=== PATIENT | male | born 1980 | race Two or more races ===

== ENCOUNTER 2020-12-07 05:37 | Emergency (ER) | payer MEDICAID ==
[~2020-12-07] VITALS: Ht 172.7 cm; Wt 70.8 kg
[2020-12-07 08:20] VITALS: BP 126/81
[2020-12-07 09:17] LABS: Basophils # (auto) 0.2 10 ^3/uL (0-0.2); Basophils % (auto) 2.1 % (0.0-2.0); Eosinophils # (auto) 0 10 ^3/uL (0-0.8); Hematocrit 39.9 % (41.0-53.0); Hemoglobin 13.4 g/dL (13.5-17.5); Lymphocytes # (auto) 0.9 10 ^3/uL (0.4-5.4); Mean Corpuscular Hemoglobin 31.5 pg (28.0-32.0); Mean Corpuscular Hgb Conc. 33.6 g/dL (32.0-36.0); Mean Corpuscular Volume 93.8 fL (80.0-100.0); Monocytes # (auto) 0.7 10 ^3/uL (0-1.3); Monocytes % (auto) 7.8 % (0.0-12.0); Neutrophils # (auto) 7.3 10 ^3/uL (1.6-8.6); Neutrophils % (auto) 80.1 % (37.0-80.0); Red Blood Cells 4.25 10^6/uL (4.5-5.90); Red Cell Distribution Width 14.2 % (11.8-14.3); White Blood Cell 9.1 10^3/uL (4.4-10.8)
[2020-12-07 09:23] LABS: Albumin 3.9 g/dL (3.4-5.0); Calcium 8.4 mg/dL (8.5-10.1); Potassium 3.6 mmol/L (3.5-5.1)
[2020-12-07 09:25] LABS: BUN/Creatinine Ratio 8.9
[2020-12-07 09:28] LABS: Bilirubin, Total 0.2 mg/dL (0.2-1.0); Total Protein 7.6 g/dL (6.4-8.2)
== END 2020-12-07 08:54 | disposition left against medical advice (07) ==
LOC: ER 05:37 → EDBD 05:37 → ER 08:54
DX: R06.02 Shortness of breath (principal); F41.9 Anxiety disorder, unspecified; F12.10 Cannabis abuse, uncomplicated; Z59.0 Homelessness
CPT/HCPCS: 36415; 80053; 85025; 93005

== ENCOUNTER 2020-12-07 11:12 | Emergency (ER) | payer MEDICAID ==
[~2020-12-07] VITALS: Ht 172.7 cm; Wt 70.8 kg
[2020-12-07 11:18] VITALS: BP 155/99
[2020-12-07] MEDS ORDERED: SODIUM CHLORIDE 0.9% 1,000 ML IV ONE (12:30)
== END 2020-12-07 13:26 | disposition left against medical advice (07) ==
LOC: ER 11:12
DX: F10.180 Alcohol abuse with alcohol-induced anxiety disorder (principal); F12.10 Cannabis abuse, uncomplicated; Z59.0 Homelessness; Y90.8 Blood alcohol level of 240 mg/100 ml or more

== ENCOUNTER 2020-12-15 04:51 | Emergency (ER) | payer MEDICAID ==
[~2020-12-15] VITALS: Ht 177.8 cm; Wt 77.1 kg
[2020-12-15 05:07] VITALS: BP 138/98
== END 2020-12-15 06:17 | disposition left against medical advice (07) ==
LOC: ER 04:51 → EDBD 04:51 → ER 06:17
DX: R05 Cough (principal); R06.00 Dyspnea, unspecified; F12.10 Cannabis abuse, uncomplicated; Z59.0 Homelessness; Z20.822 Contact with and (suspected) exposure to COVID-19
CPT/HCPCS: 36415; 71045; 87426; 93005

== ENCOUNTER 2020-12-26 22:16 | Emergency (ER) | payer MEDICAID ==
[~2020-12-26] VITALS: Ht 172.7 cm; Wt 70.3 kg
[2020-12-26] MEDS ORDERED: LORazepam 2MG/ML-1ML VIAL ONE ×2 (22:21→22:47)
[2020-12-26] MEDS ORDERED: LORazepam 2MG/ML-1ML VIAL IV ONE ×2 (22:30→22:45)
[2020-12-26] MEDS ORDERED: diphenhdrAMINE HCL 50 MG/1 ML VL IV ONE (22:30)
[2020-12-26] MEDS ORDERED: SODIUM CHLORIDE 0.9% 1,000 ML IV ONE ×2 (22:30)
[2020-12-27 00:29] LABS: Basophils # (auto) 0.1 10 ^3/uL (0-0.2); Basophils % (auto) 0.7 % (0.0-2.0); Eosinophils # (auto) 0 10 ^3/uL (0-0.8); Hematocrit 39.3 % (41.0-53.0); Hemoglobin 13.1 g/dL (13.5-17.5); Lymphocytes # (auto) 0.6 10 ^3/uL (0.4-5.4); Lymphocytes % (auto) 7.6 % (10.0-50.0); Mean Corpuscular Hemoglobin 31.2 pg (28.0-32.0); Mean Corpuscular Hgb Conc. 33.4 g/dL (32.0-36.0); Mean Corpuscular Volume 93.4 fL (80.0-100.0); Monocytes # (auto) 0.6 10 ^3/uL (0-1.3); Monocytes % (auto) 7.2 % (0.0-12.0); Neutrophils # (auto) 6.6 10 ^3/uL (1.6-8.6); Neutrophils % (auto) 84.5 % (37.0-80.0); Nucleated Red Blood Cells % 0.1 %; Platelet Count (auto) 295 10^3/uL (140-450); Red Blood Cells 4.21 10^6/uL (4.5-5.90); Red Cell Distribution Width 14.3 % (11.8-14.3); White Blood Cell 7.8 10^3/uL (4.4-10.8)
[2020-12-27 00:46] LABS: INR 1.01 (0.9-1.15); Partial Thromboplastin Time 22.8 sec (23.0-31.2)
[2020-12-27 01:37] VITALS: BP 126/75
[2020-12-27 01:54] LABS: Albumin 3.8 g/dL (3.4-5.0); Anion Gap 10 (5-15); Blood Alcohol < 3.0 mg/dL (0-5); Blood Urea Nitrogen 9 mg/dL (7-18); Calcium 8.1 mg/dL (8.5-10.1); Carbon Dioxide 22 mmol/L (21-32); Chloride 113 mmol/L (98-107); Glucose 98 mg/dL (74-106); Magnesium 2.2 mg/dL (1.6-2.6); Potassium 3.7 mmol/L (3.5-5.1); Sodium 145 mmol/L (136-145)
[2020-12-27 01:55] LABS: Salicylate < 1.7 mg/dL (2.8-20.0)
[2020-12-27 01:56] LABS: Alanine Aminotransferase 21 U/L (16-61); Aspartate Aminotransferase 17 U/L (15-37); BUN/Creatinine Ratio 9.4; GFR African American 112 mL/min; GFR Non-African American 92 mL/min
[2020-12-27 02:01] LABS: Alkaline Phosphatase 84 U/L (45-117); Bilirubin, Total 0.3 mg/dL (0.2-1.0); Total Protein 7.3 g/dL (6.4-8.2)
[2020-12-27 02:05] LABS: Acetaminophen < 2.0 ug/mL (10-30)
== END 2020-12-27 02:12 | disposition home or self-care (01) ==
LOC: ER 22:16 → EDBD 22:16 → ER 12-27 02:10
DX: F41.1 Generalized anxiety disorder (principal); R07.9 Chest pain, unspecified; F15.10 Other stimulant abuse, uncomplicated; R41.82 Altered mental status, unspecified; F12.10 Cannabis abuse, uncomplicated; Z59.0 Homelessness
CPT/HCPCS: 36415; 71045; 80053; 80320; 80329; 83735; 83880; 84443; 84484; 85025; 85379; 85610; 85730; 93005; 96361; 96374; 96375; 99285; J1200; J2060; J7030

== ENCOUNTER 2021-01-01 14:34 | Emergency (ER) | payer MEDICAID ==
[~2021-01-01] VITALS: Ht 172.7 cm; Wt 72.6 kg
[2021-01-01 14:43] VITALS: BP 124/88
[2021-01-01] MEDS ORDERED: KETOROLAC TROMETH 30 MG/ML 1ML VIAL IV ONE (15:00)
[2021-01-01] MEDS ORDERED: SODIUM CHLORIDE 0.9% 1,000 ML IVB ONE (15:00)
[2021-01-01 15:28] LABS: Basophils # (auto) 0 10 ^3/uL (0-0.2); Basophils % (auto) 0.8 % (0.0-2.0); Eosinophils # (auto) 0 10 ^3/uL (0-0.8); Eosinophils % (auto) 0.1 % (0.0-7.0); Hematocrit 41.4 % (41.0-53.0); Hemoglobin 14.2 g/dL (13.5-17.5); Lymphocytes # (auto) 1.1 10 ^3/uL (0.4-5.4); Lymphocytes % (auto) 22.6 % (10.0-50.0); Mean Corpuscular Hemoglobin 31.6 pg (28.0-32.0); Mean Corpuscular Hgb Conc. 34.2 g/dL (32.0-36.0); Mean Corpuscular Volume 92.4 fL (80.0-100.0); Monocytes # (auto) 0.5 10 ^3/uL (0-1.3); Monocytes % (auto) 9.6 % (0.0-12.0); Neutrophils # (auto) 3.3 10 ^3/uL (1.6-8.6); Neutrophils % (auto) 66.9 % (37.0-80.0); Nucleated Red Blood Cells % 0.1 %; Red Blood Cells 4.48 10^6/uL (4.5-5.90); Red Cell Distribution Width 14.1 % (11.8-14.3); White Blood Cell 4.9 10^3/uL (4.4-10.8)
[2021-01-01 18:16] LABS: Albumin 4.3 g/dL (3.4-5.0); BUN/Creatinine Ratio 5.1; Calcium 8.6 mg/dL (8.5-10.1); Potassium 3.2 mmol/L (3.5-5.1)
[2021-01-01 18:18] LABS: Bilirubin, Total 0.3 mg/dL (0.2-1.0); Total Protein 8.2 g/dL (6.4-8.2)
== END 2021-01-01 15:45 | disposition left against medical advice (07) ==
LOC: EDBD 14:34 → ER 14:34 → EDUNIT# 14:34 → ER 15:45
DX: R07.89 Other chest pain (principal); F15.10 Other stimulant abuse, uncomplicated; F10.10 Alcohol abuse, uncomplicated; F41.9 Anxiety disorder, unspecified; Z59.0 Homelessness
CPT/HCPCS: 36415; 74176; 80053; 80320; 83690; 85025

== ENCOUNTER 2021-01-03 10:44 | Emergency (ER) | payer MEDICAID ==
[~2021-01-03] VITALS: Ht 167.6 cm; Wt 77.1 kg
[2021-01-03] MEDS ORDERED: SODIUM CHLORIDE 0.9% 1,000 ML IV ONE (11:10)
[2021-01-03 11:40] LABS: Basophils # (auto) 0 10 ^3/uL (0-0.2); Basophils % (auto) 0.4 % (0.0-2.0); Eosinophils # (auto) 0.1 10 ^3/uL (0-0.8); Eosinophils % (auto) 1.7 % (0.0-7.0); Hematocrit 40.8 % (41.0-53.0); Hemoglobin 13.6 g/dL (13.5-17.5); Lymphocytes # (auto) 0.9 10 ^3/uL (0.4-5.4); Lymphocytes % (auto) 18.1 % (10.0-50.0); Mean Corpuscular Hemoglobin 30.8 pg (28.0-32.0); Mean Corpuscular Hgb Conc. 33.2 g/dL (32.0-36.0); Mean Corpuscular Volume 92.5 fL (80.0-100.0); Monocytes # (auto) 0.7 10 ^3/uL (0-1.3); Monocytes % (auto) 13.1 % (0.0-12.0); Neutrophils # (auto) 3.4 10 ^3/uL (1.6-8.6); Neutrophils % (auto) 66.7 % (37.0-80.0); Platelet Count (auto) 339 10^3/uL (140-450); Red Blood Cells 4.41 10^6/uL (4.5-5.90); Red Cell Distribution Width 14.1 % (11.8-14.3); White Blood Cell 5.1 10^3/uL (4.4-10.8)
[2021-01-03 12:12] LABS: Albumin 3.8 g/dL (3.4-5.0); Anion Gap 8 (5-15); Blood Urea Nitrogen 9 mg/dL (7-18); Calcium 8.7 mg/dL (8.5-10.1); Carbon Dioxide 26 mmol/L (21-32); Chloride 104 mmol/L (98-107); Glucose 109 mg/dL (74-106); Potassium 3.3 mmol/L (3.5-5.1); Sodium 138 mmol/L (136-145)
[2021-01-03 12:18] LABS: Alanine Aminotransferase 21 U/L (16-61); Alkaline Phosphatase 83 U/L (45-117); Aspartate Aminotransferase 20 U/L (15-37); Bilirubin, Total 0.7 mg/dL (0.2-1.0); GFR African American 134 mL/min; GFR Non-African American 111 mL/min; Total Protein 7.3 g/dL (6.4-8.2)
[2021-01-03 13:36] VITALS: BP 128/80
== END 2021-01-03 14:25 | disposition home or self-care (01) ==
LOC: EDBD 10:44 → EDUNIT# 10:44 → ER 10:44
DX: F41.1 Generalized anxiety disorder (principal); R07.9 Chest pain, unspecified; F12.10 Cannabis abuse, uncomplicated; Z59.0 Homelessness
CPT/HCPCS: 36415; 71045; 80053; 82962; 84484; 85025; 93005; 99285; J7030

== ENCOUNTER 2021-01-04 21:55 | Emergency (ER) | payer MEDICAID ==
[~2021-01-04] VITALS: Ht 172.7 cm; Wt 68.0 kg
[2021-01-05 00:40] VITALS: BP 147/105
== END 2021-01-05 03:34 | disposition left against medical advice (07) ==
LOC: ER 21:56
DX: R05 Cough (principal); Z53.21 Procedure and treatment not carried out due to patient leaving prior to being seen by health care provider
CPT/HCPCS: 71046

== ENCOUNTER 2021-01-07 02:22 | Emergency (ER) | payer MEDICAID ==
[~2021-01-07] VITALS: Ht 172.7 cm; Wt 70.8 kg
[2021-01-07] MEDS ORDERED: ALPRAZolam 0.5 MG TAB ONE (02:41)
[2021-01-07] MEDS ORDERED: ALPRAZolam 0.5 MG TAB PO ONE (02:45)
[2021-01-07 06:48] VITALS: BP 146/99
== END 2021-01-07 06:57 | disposition home or self-care (01) ==
LOC: ER 02:25
DX: F41.9 Anxiety disorder, unspecified (principal); F19.10 Other psychoactive substance abuse, uncomplicated

== ENCOUNTER 2021-01-11 03:55 | Emergency (ER) | payer MEDICAID ==
[~2021-01-11] VITALS: Ht 172.7 cm; Wt 70.8 kg
[2021-01-11 08:20] VITALS: BP 139/99
== END 2021-01-11 08:44 | disposition home or self-care (01) ==
LOC: ER 03:55
DX: R05 Cough (principal); R07.9 Chest pain, unspecified; F12.10 Cannabis abuse, uncomplicated; F15.10 Other stimulant abuse, uncomplicated; Z59.0 Homelessness; Z20.822 Contact with and (suspected) exposure to COVID-19
CPT/HCPCS: 36415; 71046; 87426

== ENCOUNTER 2021-01-26 23:52 | Emergency (ER) | payer MEDICAID ==
[~2021-01-26] VITALS: Ht 172.7 cm; Wt 70.8 kg
[2021-01-27] MEDS ORDERED: SODIUM CHLORIDE 0.9% 1,000 ML IV ONE (00:15)
[2021-01-27 01:07] LABS: Partial Thromboplastin Time 23.8 sec (23.0-31.2)
[2021-01-27 01:13] LABS: Basophils # (auto) 0 10 ^3/uL (0-0.2); Basophils % (auto) 0.6 % (0.0-2.0); Eosinophils # (auto) 0 10 ^3/uL (0-0.8); Hematocrit 41.8 % (41.0-53.0); Hemoglobin 14.1 g/dL (13.5-17.5); Lymphocytes # (auto) 1.2 10 ^3/uL (0.4-5.4); Lymphocytes % (auto) 17.1 % (10.0-50.0); Mean Corpuscular Hemoglobin 31.1 pg (28.0-32.0); Mean Corpuscular Hgb Conc. 33.8 g/dL (32.0-36.0); Monocytes # (auto) 0.5 10 ^3/uL (0-1.3); Monocytes % (auto) 7.1 % (0.0-12.0); Neutrophils # (auto) 5.1 10 ^3/uL (1.6-8.6); Neutrophils % (auto) 75.2 % (37.0-80.0); Platelet Count (auto) 364 10^3/uL (140-450); Red Blood Cells 4.54 10^6/uL (4.5-5.90); Red Cell Distribution Width 14.3 % (11.8-14.3); White Blood Cell 6.8 10^3/uL (4.4-10.8)
[2021-01-27 01:14] LABS: Alanine Aminotransferase 25 U/L (16-61); Anion Gap 10 (5-15); Aspartate Aminotransferase 17 U/L (15-37); BUN/Creatinine Ratio 8.8; Blood Urea Nitrogen 9 mg/dL (7-18); Calcium 8.3 mg/dL (8.5-10.1); Carbon Dioxide 23 mmol/L (21-32); Chloride 107 mmol/L (98-107); GFR African American 104 mL/min; GFR Non-African American 86 mL/min; Glucose 117 mg/dL (74-106); Magnesium 1.8 mg/dL (1.6-2.6); Potassium 3.4 mmol/L (3.5-5.1); Sodium 140 mmol/L (136-145)
[2021-01-27 01:18] LABS: Alkaline Phosphatase 91 U/L (45-117); Bilirubin, Total 0.3 mg/dL (0.2-1.0); Total Protein 7.7 g/dL (6.4-8.2)
[2021-01-27] MEDS ORDERED: DONNATAL 5ml ORAL Elix (BELLADONNA ALK-PHENOBARB) PO ONE (01:45)
[2021-01-27] MEDS ORDERED: ALUM & MAG HYDROX-SIMETH LIQ(MAALOX) 30 ML PO ONE (01:45)
[2021-01-27] MEDS ORDERED: LIDOCAINE VISCOUS 2% 15ML UD PO ONE (01:45)
[2021-01-27 02:00] VITALS: BP 157/97
[2021-01-27 04:45] LABS: Urine Bacteria NONE SEEN /hpf (None Seen); Urine Blood Negative /uL (Negative); Urine Specific Gravity 1.012 (1.001-1.035); Urine WBC <1 /hpf (0 - 3)
[2021-01-27 05:13] LABS: Amphetamine Screen, Urine POSITIVE (NEGATIVE); Barbiturate Scree,Urine NEGATIVE (NEGATIVE); Benzodiazephine Screen, Urine NEGATIVE (NEGATIVE); Cannabinoid Screen, Urine NEGATIVE (NEGATIVE); Cocaine Screen, Urine NEGATIVE (NEGATIVE); Opiate Scree,Urine NEGATIVE (NEGATIVE); Phencyclidine Screen, Urine NEGATIVE (NEGATIVE)
== END 2021-01-27 03:31 | disposition home or self-care (01) ==
LOC: ER 23:54
DX: R10.13 Epigastric pain (principal); R07.9 Chest pain, unspecified; F12.10 Cannabis abuse, uncomplicated; F15.10 Other stimulant abuse, uncomplicated; Z59.0 Homelessness
CPT/HCPCS: 36415; 71046; 80053; 80307; 80320; 81001; 83735; 83880; 84443; 84484; 85025; 85610; 85730; 93005; 96360; 99285; J7030

== ENCOUNTER → 2021-01-27 05:23 | Emergency (ER) | payer MEDICAID ==
[~2021-01-27] VITALS: Ht 172.7 cm; Wt 70.8 kg
[2021-01-27 05:50] VITALS: BP 167/101
== END | disposition left against medical advice (07) ==
LOC: ER 05:23
DX: F41.9 Anxiety disorder, unspecified (principal); F15.20 Other stimulant dependence, uncomplicated
CPT/HCPCS: 93005

== ENCOUNTER 2021-01-27 07:32 | Emergency (ER) | payer MEDICAID ==
[~2021-01-27] VITALS: Ht 172.7 cm; Wt 70.8 kg
[2021-01-27 08:30] VITALS: BP 143/98
[2021-01-27] MEDS ORDERED: LORazepam 0.5 MG TAB PO ONE (08:30)
== END 2021-01-27 11:30 | disposition home or self-care (01) ==
LOC: ER 07:32
DX: F41.9 Anxiety disorder, unspecified (principal); F15.20 Other stimulant dependence, uncomplicated
CPT/HCPCS: 93005

== ENCOUNTER 2021-01-31 12:05 | Emergency (ER) | payer MEDICAID ==
[~2021-01-31] VITALS: Ht 172.7 cm; Wt 72.6 kg
[2021-01-31 12:12] VITALS: BP 145/106
[2021-01-31 13:14] LABS: Basophils # (auto) 0 10 ^3/uL (0-0.2); Basophils % (auto) 0.7 % (0.0-2.0); Eosinophils # (auto) 0 10 ^3/uL (0-0.8); Eosinophils % (auto) 0.5 % (0.0-7.0); Hematocrit 44.6 % (41.0-53.0); Hemoglobin 14.7 g/dL (13.5-17.5); Lymphocytes # (auto) 1.1 10 ^3/uL (0.4-5.4); Lymphocytes % (auto) 17.8 % (10.0-50.0); Mean Corpuscular Hemoglobin 30.2 pg (28.0-32.0); Mean Corpuscular Hgb Conc. 32.9 g/dL (32.0-36.0); Monocytes # (auto) 0.5 10 ^3/uL (0-1.3); Monocytes % (auto) 8.5 % (0.0-12.0); Neutrophils # (auto) 4.6 10 ^3/uL (1.6-8.6); Neutrophils % (auto) 72.5 % (37.0-80.0); Nucleated Red Blood Cells % 0.1 %; Red Blood Cells 4.85 10^6/uL (4.5-5.90); Red Cell Distribution Width 14.7 % (11.8-14.3); White Blood Cell 6.4 10^3/uL (4.4-10.8)
[2021-01-31 13:31] LABS: Albumin 4.1 g/dL (3.4-5.0); Anion Gap 6 (5-15); Blood Urea Nitrogen 9 mg/dL (7-18); Calcium 8.8 mg/dL (8.5-10.1); Carbon Dioxide 26 mmol/L (21-32); Chloride 105 mmol/L (98-107); Glucose 103 mg/dL (74-106); Potassium 3.4 mmol/L (3.5-5.1); Sodium 137 mmol/L (136-145)
[2021-01-31 13:38] LABS: Alanine Aminotransferase 23 U/L (16-61); Alkaline Phosphatase 98 U/L (45-117); Aspartate Aminotransferase 18 U/L (15-37); BUN/Creatinine Ratio 9.9; Bilirubin, Total 0.4 mg/dL (0.2-1.0); GFR African American 119 mL/min; GFR Non-African American 98 mL/min; Total Protein 8.2 g/dL (6.4-8.2)
== END 2021-01-31 16:31 | disposition left against medical advice (07) ==
LOC: ER 12:05
DX: R07.9 Chest pain, unspecified (principal); Z53.21 Procedure and treatment not carried out due to patient leaving prior to being seen by health care provider
CPT/HCPCS: 36415; 71045; 80053; 84484; 85025; 93005

== ENCOUNTER 2021-02-08 13:20 | Emergency (ER) | payer MEDICAID ==
[~2021-02-08] VITALS: Ht 172.7 cm; Wt 72.6 kg
[2021-02-08 14:32] LABS: Basophils # (auto) 0 10 ^3/uL (0-0.2); Basophils % (auto) 0.6 % (0.0-2.0); Eosinophils # (auto) 0 10 ^3/uL (0-0.8); Eosinophils % (auto) 0.1 % (0.0-7.0); Hematocrit 43.9 % (41.0-53.0); Hemoglobin 14.8 g/dL (13.5-17.5); Lymphocytes # (auto) 1.5 10 ^3/uL (0.4-5.4); Lymphocytes % (auto) 24.6 % (10.0-50.0); Mean Corpuscular Hemoglobin 30.9 pg (28.0-32.0); Mean Corpuscular Hgb Conc. 33.6 g/dL (32.0-36.0); Monocytes # (auto) 0.5 10 ^3/uL (0-1.3); Monocytes % (auto) 7.9 % (0.0-12.0); Neutrophils % (auto) 66.8 % (37.0-80.0); Nucleated Red Blood Cells % 0.7 %; Platelet Count (auto) 334 10^3/uL (140-450); Red Blood Cells 4.78 10^6/uL (4.5-5.90); Red Cell Distribution Width 14.8 % (11.8-14.3); White Blood Cell 6.1 10^3/uL (4.4-10.8)
[2021-02-08 14:37] LABS: Albumin 4.4 g/dL (3.4-5.0); Anion Gap 10 (5-15); Blood Urea Nitrogen 12 mg/dL (7-18); Calcium 8.9 mg/dL (8.5-10.1); Carbon Dioxide 24 mmol/L (21-32); Chloride 106 mmol/L (98-107); Glucose 108 mg/dL (74-106); Potassium 3.7 mmol/L (3.5-5.1); Sodium 140 mmol/L (136-145)
[2021-02-08 14:44] LABS: Alanine Aminotransferase 29 U/L (16-61); Alkaline Phosphatase 100 U/L (45-117); Aspartate Aminotransferase 24 U/L (15-37); BUN/Creatinine Ratio 11.3; Bilirubin, Total 0.5 mg/dL (0.2-1.0); GFR African American 100 mL/min; GFR Non-African American 82 mL/min; Total Protein 8.3 g/dL (6.4-8.2)
[2021-02-08 16:51] VITALS: BP 146/100
[2021-02-08] MEDS ORDERED: LORazepam 2MG/ML-1ML VIAL IV ONE (18:30)
[2021-02-08] MEDS: SODIUM CHLORIDE 0.9% 1,000 ML IVB ONE ×2 (18:31→18:49)
[2021-02-08 19:14] LABS: Urine Bacteria NONE SEEN /hpf (None Seen); Urine Blood Negative /uL (Negative); Urine Specific Gravity 1.016 (1.001-1.035); Urine WBC <1 /hpf (0 - 3)
[2021-02-08 19:26] LABS: Amphetamine Screen, Urine POSITIVE (NEGATIVE); Barbiturate Scree,Urine NEGATIVE (NEGATIVE); Benzodiazephine Screen, Urine NEGATIVE (NEGATIVE); Cannabinoid Screen, Urine NEGATIVE (NEGATIVE); Cocaine Screen, Urine NEGATIVE (NEGATIVE); Opiate Scree,Urine NEGATIVE (NEGATIVE); Phencyclidine Screen, Urine NEGATIVE (NEGATIVE)
== END 2021-02-08 19:02 | disposition left against medical advice (07) ==
LOC: ER 13:20
DX: R07.89 Other chest pain (principal); F41.1 Generalized anxiety disorder; F10.239 Alcohol dependence with withdrawal, unspecified; I10 Essential (primary) hypertension; Z59.0 Homelessness; Z20.822 Contact with and (suspected) exposure to COVID-19; Y90.8 Blood alcohol level of 240 mg/100 ml or more
CPT/HCPCS: 36415; 71045; 80053; 80307; 81001; 84484; 85025; 85379; 87426; 93005; 99285; J2060

== ENCOUNTER 2021-02-14 14:09 | Emergency (ER) | payer MEDICAID ==
[~2021-02-14] VITALS: Ht 172.7 cm; Wt 74.8 kg
[2021-02-14 14:17] VITALS: BP 142/111
== END 2021-02-14 16:55 | disposition left against medical advice (07) ==
LOC: ER 14:09
DX: R07.89 Other chest pain (principal); Z53.21 Procedure and treatment not carried out due to patient leaving prior to being seen by health care provider

== ENCOUNTER 2021-02-25 03:05 | Emergency (ER) | payer MEDICAID ==
[~2021-02-25] VITALS: Ht 170.2 cm; Wt 81.6 kg
[2021-02-25 03:08] VITALS: BP 139/82
[2021-02-25] MEDS ORDERED: ACETAMINOPHEN 325 MG TAB PO ONE (03:45)
== END 2021-02-25 05:36 | disposition home or self-care (01) ==
LOC: ER 03:05 → EDBD 03:05 → ER 05:36
DX: R45.1 Restlessness and agitation (principal); F17.210 Nicotine dependence, cigarettes, uncomplicated; Z59.0 Homelessness

== ENCOUNTER 2021-03-21 09:41 | Emergency (ER) | payer MEDICAID ==
[~2021-03-21] VITALS: Ht 172.7 cm; Wt 73.0 kg
[2021-03-21 09:42] VITALS: BP 154/109
== END 2021-03-21 10:47 | disposition left against medical advice (07) ==
LOC: ER 09:41
DX: M79.602 Pain in left arm (principal); Z53.21 Procedure and treatment not carried out due to patient leaving prior to being seen by health care provider

== ENCOUNTER 2021-03-21 14:55 | Emergency (ER) | payer MEDICAID ==
[~2021-03-21] VITALS: Ht 172.7 cm; Wt 73.0 kg
[2021-03-21 14:59] VITALS: BP 151/109
== END 2021-03-21 18:32 | disposition left against medical advice (07) ==
LOC: ER 14:55
DX: M79.602 Pain in left arm (principal); Z53.21 Procedure and treatment not carried out due to patient leaving prior to being seen by health care provider

== ENCOUNTER 2021-03-24 22:53 | Emergency (ER) | payer MEDICAID ==
[~2021-03-24] VITALS: Ht 172.7 cm; Wt 72.6 kg
[2021-03-24 22:55] VITALS: BP 135/99
== END 2021-03-25 03:06 | disposition left against medical advice (07) ==
LOC: ER 23:00
DX: M79.602 Pain in left arm (principal); Z53.21 Procedure and treatment not carried out due to patient leaving prior to being seen by health care provider

== ENCOUNTER 2021-05-15 20:26 | Emergency (ER) | payer MEDICAID ==
[~2021-05-15] VITALS: Ht 172.7 cm; Wt 72.6 kg
[2021-05-16 02:12] LABS: Basophils # (auto) 0.1 10 ^3/uL (0-0.2); Basophils % (auto) 1.1 % (0.0-2.0); Eosinophils # (auto) 0 10 ^3/uL (0-0.8); Eosinophils % (auto) 0.6 % (0.0-7.0); Hematocrit 36.6 % (41.0-53.0); Hemoglobin 12.4 g/dL (13.5-17.5); Lymphocytes # (auto) 1.2 10 ^3/uL (0.4-5.4); Lymphocytes % (auto) 18.3 % (10.0-50.0); Mean Corpuscular Hgb Conc. 33.8 g/dL (32.0-36.0); Mean Corpuscular Volume 91.5 fL (80.0-100.0); Monocytes # (auto) 0.7 10 ^3/uL (0-1.3); Monocytes % (auto) 10.7 % (0.0-12.0); Neutrophils # (auto) 4.6 10 ^3/uL (1.6-8.6); Neutrophils % (auto) 69.3 % (37.0-80.0); Nucleated Red Blood Cells % 0.1 %; Red Cell Distribution Width 13.6 % (11.8-14.3); White Blood Cell 6.6 10^3/uL (4.4-10.8)
[2021-05-16 02:18] LABS: Alanine Aminotransferase 35 U/L (16-61); Albumin 3.8 g/dL (3.4-5.0); Anion Gap 8 (5-15); Aspartate Aminotransferase 26 U/L (15-37); BUN/Creatinine Ratio 7.2; Blood Urea Nitrogen 6 mg/dL (7-18); Calcium 8.4 mg/dL (8.5-10.1); Carbon Dioxide 25 mmol/L (21-32); Chloride 106 mmol/L (98-107); GFR African American 132 mL/min; GFR Non-African American 109 mL/min; Glucose 93 mg/dL (74-106); Potassium 3.2 mmol/L (3.5-5.1); Sodium 139 mmol/L (136-145)
[2021-05-16 02:19] LABS: INR 0.98 (0.9-1.15)
[2021-05-16 02:21] LABS: Alkaline Phosphatase 88 U/L (45-117); Bilirubin, Total 0.4 mg/dL (0.2-1.0); Total Protein 7.7 g/dL (6.4-8.2)
[2021-05-16 05:18] VITALS: BP 132/85
== END 2021-05-16 05:18 | disposition home or self-care (01) ==
LOC: ER 20:26
DX: R07.89 Other chest pain (principal); F17.210 Nicotine dependence, cigarettes, uncomplicated; F15.10 Other stimulant abuse, uncomplicated; Z59.0 Homelessness
CPT/HCPCS: 36415; 71046; 80053; 84484; 85025; 85610; 85730; 93005

== ENCOUNTER 2022-01-08 14:42 | Emergency (ER) | payer MEDICAID ==
[~2022-01-08] VITALS: Ht 172.7 cm; Wt 72.6 kg
[2022-01-08 14:48] VITALS: BP 151/105
[2022-01-08] MEDS ORDERED: HYDROcodone-ACET 5/325MG TAB PO ONE (16:30)
== END 2022-01-08 16:36 | disposition home or self-care (01) ==
LOC: ER 14:42
DX: S43.421A Sprain of right rotator cuff capsule, initial encounter (principal); F17.210 Nicotine dependence, cigarettes, uncomplicated; F15.10 Other stimulant abuse, uncomplicated; Z59.00 Homelessness unspecified; X58.XXXA Exposure to other specified factors, initial encounter; Y93.89 Activity, other specified; Y92.89 Other specified places as the place of occurrence of the external cause; Y99.8 Other external cause status
CPT/HCPCS: 73030

== ENCOUNTER 2025-08-27 22:04 | Emergency (ER) | payer MEDICAID, OTHER ==
[~2025-08-27] VITALS: Ht 172.7 cm; Wt 65.9 kg
[2025-08-27 22:04] VITALS: BP 113/117; PULSE 124; RESP 20; TEMP 98.5; O2SAT 96
--- NOTE | 2025-08-27 23:55 | DVH ---
CHEST RADIOGRAPH Indication: cough Technique: Frontal and lateral view of the chest was obtained Comparison: XR CHEST 2 VIEWS on DOS: 07/31/25, XR CHEST 2 VIEWS on DOS: 10/29/23, XR CHEST 1 VIEW on DOS: 10/15/23, XR CHEST 1 VIEW on DOS: 10/10/23, XR CHEST 1 VIEW on DOS: 10/08/23 FINDINGS: Lines and Tubes: None Lungs: Clear Pleura: No effusion. No pneumothorax. Cardiomediastinal contours: Unremarkable Bones: Unremarkable IMPRESSION: 1. No evidence of acute disease.
== END 2025-08-27 22:52 | disposition left against medical advice (07) ==
LOC: ER 22:04
DX: R05.9 Cough, unspecified (principal); Z79.899 Other long term (current) drug therapy
CPT/HCPCS: 71046